=== PATIENT | female | born 1945 ===

== ENCOUNTER → 2018-07-25 19:40 | Outpatient (ROUT) | payer MEDICARE, OTHER, SELFPAY ==
[2018-07-25 20:10] LABS: Add Manual Diff / Slide Review NO; Basophils Absolute Auto 100 /uL (0-100); Basophils Percent Auto 1.5 % (0-2); Eosinophils Absolute Auto 100 /uL (0-450); Eosinophils Percent Auto 2.1 % (2-4); Hematocrit 37.3 % (36-46); Hemoglobin 12.5 g/dL (12.0-16.0); Lymphocytes Absolute Auto 1900 /uL (1100-4500); Mean Corpuscular HGB Conc 33.6 % (30-36); Mean Corpuscular Hemoglobin 29.7 PG (26-34); Mean Corpuscular Volume 88.5 fL (80-100); Monocytes Absolute Auto 500 /uL (0-900); Monocytes Percent Auto 8.1 % (3-14); Neutrophils Absolute Auto 3200 /uL (1500-7000); Neutrophils Percent Auto 55.3 % (50-75); Platelet Count 272 X10^3/uL (150-400); Red Blood Cell Count 4.22 X10^6/uL (4.0-5.2); Red Cell Distribution Width 13.8 % (11.6-14.8); White Blood Cell Count 5.8 X10^3/uL (4.5-11.0)
[2018-07-25 20:20] LABS: HEMOLYSIS < 15 (0-50); Iron 68 ug/dL (37-170)
[2018-07-25 20:22] LABS: Alanine Aminotransferase 24 IU/L (9-52); Albumin 4.4 g/dL (3.5-5.0); Albumin Globulin Ratio 1.5 (1.0-2.8); Alkaline Phosphatase 67 U/L (38-126); Aspartate Aminotransferase 22 IU/L (14-36); BUN Creatinine Ratio 18.8 (6-22); Bilirubin Total 0.6 mg/dL (0.2-1.3); Blood Urea Nitrogen 15 mg/dL (7-17); Calcium 9.6 mg/dL (8.4-10.2); Carbon Dioxide 29 mmol/L (22-32); Chloride 98 mmol/L (98-107); Cholesterol 309 mg/dL (140-199); Estimated Glomerular Filt Rate > 60.0 mL/min (>60); Globulin 2.9 g/dL (1.7-4.1); Glucose 90 mg/dL (80-110); HDL Cholesterol 79 mg/dL (40-60); HEMOLYSIS < 15 (0-50); LDL Cholesterol Calculated 214 mg/dL (<100); Potassium 4.4 mmol/L (3.4-5.1); Sodium 136 mmol/L (137-145); Total Protein 7.3 g/dL (6.3-8.2); Triglycerides 82 mg/dL (35-150)
[2018-07-25 20:32] LABS: Erythrocyte Sedimentation Rate 29 MM/HR (0-20); Percent Iron Saturation 21 % (15-50); Total Iron Binding Capacity 320 ug/dL (265-497); Transferrin 261 mg/dL (206-381)
[2018-07-25 20:36] LABS: Free T3, Triiodothyronine Free 3.11 pg/mL (2.77-5.27); Free T4, Direct Thyroxine 1.24 ng/dL (0.78-2.19); Triiodothryronine T3 Uptake 38.2 % (23.5-40.5)
[2018-07-25 20:50] LABS: Thyroid Stimulating Hormone 1.06 uIU/mL (0.47-4.68)
[2018-07-25 20:56] LABS: Ferritin 80.5 ng/mL (11.1-264)
[2018-07-25 21:26] LABS: Vitamin B12 967 pg/mL (239-931)
[2018-07-27 14:14] LABS: Anti Thyroglobulin Antibody < 1 IU/mL (< 2); Thyroid Peroxidase Antibodies 1 IU/mL (< 9)
[2018-07-28 17:10] LABS: Triiodothyronine T3 Total 74 ng/dL (76-181)
== END ==
PROVIDERS: Visit Provider Family Medicine
DX: E03.9 Hypothyroidism, unspecified (principal); R53.83 Other fatigue; E66.3 Overweight; G89.29 Other chronic pain; G47.9 Sleep disorder, unspecified; E78.00 Pure hypercholesterolemia, unspecified
CPT/HCPCS: 36415; 80053; 80061; 82607; 82728; 82746; 83540; 83550; 84439; 84443; 84479; 84480; 84481; 85025; 85651; 86376; 86800